=== PATIENT | female | born 1945 | race Two or more races ===

== ENCOUNTER 2018-02-18 09:32 | Outpatient (CLI) | payer OTHER | END 2018-02-18 09:34 | disposition home or self-care (01) | LOC: SONOGRAMA 09:32 | DX: E04.1 Nontoxic single thyroid nodule (principal) ==

== ENCOUNTER 2018-04-15 12:57 | Outpatient (CLI) | payer OTHER | END 2018-04-15 13:25 | disposition home or self-care (01) | LOC: LAB 12:57 | DX: N39.0 Urinary tract infection, site not specified (principal); N20.0 Calculus of kidney; Z51.81 Encounter for therapeutic drug level monitoring; B96.89 Other specified bacterial agents as the cause of diseases classified elsewhere ==

== ENCOUNTER 2018-04-15 14:34 | Outpatient (CLI) | payer OTHER | END 2018-04-15 14:48 | disposition home or self-care (01) | LOC: TOM 14:34 | DX: H53.2 Diplopia (principal) | CPT/HCPCS: 70481; Q9965 ==

== ENCOUNTER 2018-05-05 02:32 | Emergency (ER) | payer OTHER ==
[~2018-05-05] VITALS: Ht 149.9 cm; Wt 70.3 kg
[2018-05-05] MEDS ORDERED: NIFEDIPINE ER30 M1 PO (06:03)
== END 2018-05-05 06:09 | disposition home or self-care (01) ==
LOC: ER 02:32
DX: I16.0 Hypertensive urgency (principal); I10 Essential (primary) hypertension

== ENCOUNTER 2018-08-25 11:42 | Outpatient (CLI) | payer OTHER ==
[~2018-08-25] VITALS: Ht 147.3 cm; Wt 73.5 kg
[~2018-08-25 11:42] MED LIST: NIFEDIPINE ER30 M1 PO
[2018-08-25] MEDS ORDERED: SWIM EAR DRO29.57 ML OT (12:08)
== END 2018-08-25 16:02 | disposition home or self-care (01) ==
LOC: OFIC 805 11:42
DX: H60.8X1 Other otitis externa, right ear (principal)

== ENCOUNTER → 2018-12-22 | Outpatient (CLI) | payer OTHER ==
[~2018-12-22] MED LIST changes: +SWIM EAR DRO29.57 ML OT
== END | disposition home or self-care (01) ==
LOC: SONOGRAMA 12:28
DX: C73 Malignant neoplasm of thyroid gland (principal)

== ENCOUNTER 2019-01-18 14:01 | Outpatient (CLI) | payer OTHER | END 2019-01-18 14:26 | disposition home or self-care (01) | LOC: MAMO-SONO 14:01 | DX: Z12.31 Encounter for screening mammogram for malignant neoplasm of breast (principal); Z87.898 Personal history of other specified conditions; N20.0 Calculus of kidney; F33.0 Major depressive disorder, recurrent, mild; C73 Malignant neoplasm of thyroid gland; Z68.35 Body mass index [BMI] 35.0-35.9, adult; N60.02 Solitary cyst of left breast; N64.4 Mastodynia ==

== ENCOUNTER 2020-12-27 09:15 | Outpatient (CLI) | payer OTHER | END 2020-12-27 09:25 | disposition home or self-care (01) | LOC: RAD 09:15 | DX: N20.0 Calculus of kidney (principal) ==

== ENCOUNTER 2021-02-06 09:30 | Outpatient (CLI) | payer OTHER | END 2021-02-06 09:38 | disposition home or self-care (01) | LOC: SONOGRAMA 09:30 | DX: N20.0 Calculus of kidney (principal) ==

== ENCOUNTER 2021-08-16 13:14 | Emergency (ER) | payer OTHER ==
[~2021-08-16] VITALS: Ht 149.9 cm; Wt 74.8 kg
[2021-08-16] MEDS ORDERED: SYNTHROID137 MCG PO (13:38)
[2021-08-16] MEDS ORDERED: CANDESARTAN CIL32 MG PO (13:38)
[2021-08-16] MEDS ORDERED: BACTRIM DS TAB1 EACH PO (18:10)
[2021-08-16] MEDS ORDERED: DOLOGEN CAPLET1 EACH PO (18:10)
[2021-08-16] MEDS ORDERED: TUSNEL LIQUID178 ML PO (18:10)
[2021-08-16] MEDS ORDERED: PROAIR HFA8.5 GM IH (18:10)
== END 2021-08-16 18:38 | disposition home or self-care (01) ==
LOC: ER 13:14
DX: U07.1 COVID-19 (principal); I10 Essential (primary) hypertension

== ENCOUNTER 2021-08-21 08:15 | Outpatient (CLI) | payer OTHER | END 2021-10-01 08:45 | disposition home or self-care (01) | LOC: ASH CLINIC 08:15 | DX: U07.1 COVID-19 (principal) ==

== ENCOUNTER 2022-04-25 11:57 | Outpatient (CLI) | payer OTHER ==
[~2022-04-25 11:57] MED LIST changes: +BACTRIM DS TAB1 EACH PO; +CANDESARTAN CIL32 MG PO; +DOLOGEN CAPLET1 EACH PO; +PROAIR HFA8.5 GM IH; +SYNTHROID137 MCG PO; +TUSNEL LIQUID178 ML PO
== END 2022-04-25 12:04 | disposition home or self-care (01) ==
LOC: RAD 11:57
PROVIDERS: ATTEND Physical Medicine & Rehabilitation Pain Medicine
DX: S63.501A Unspecified sprain of right wrist, initial encounter (principal); S63.502A Unspecified sprain of left wrist, initial encounter; S80.01XA Contusion of right knee, initial encounter; S80.02XA Contusion of left knee, initial encounter; S32.000A Wedge compression fracture of unspecified lumbar vertebra, initial encounter for closed fracture

== ENCOUNTER 2022-05-21 09:54 | Outpatient (CLI) | payer OTHER | END 2022-05-21 10:15 | disposition home or self-care (01) | LOC: MRI 09:54 | PROVIDERS: ATTEND Physical Medicine & Rehabilitation Pain Medicine | DX: M25.531 Pain in right wrist (principal); M65.9 Synovitis and tenosynovitis, unspecified | CPT/HCPCS: 73221 ==

== ENCOUNTER 2024-12-28 12:49 | Emergency (ER) | payer OTHER ==
[~2024-12-28] VITALS: Ht 147.3 cm; Wt 74.4 kg
[2024-12-28 13:29] VITALS: BP 143/87; O2SAT 96
[2024-12-28] MEDS ORDERED: AMLODIPINE-OLM1 EAC2 (13:31)
[2024-12-28] MEDS ORDERED: GUAIFENESIN/DEXTROMETHORPHAN 100MG/10ML BLIST.PACK PO ONE ×2 (14:30→15:02)
[2024-12-28] MEDS ORDERED: CETIRIZINE HCL 5 MG/5 ML ML PO ONE (14:30)
[2024-12-28] MEDS ORDERED: CETIRIZINE HCL 5MG/5ML BLIST.PACK PO ONE (15:02)
[2024-12-28 15:25] LABS: BASO % 0.6 % (0.1-1.2); EOS # 0.20 (0.04-0.54); EOS % 1.8 % (0.7-7.0); LYMPH # 1.17 (1.18-3.74); LYMPH % 10.5 % (19.3-53.1); MEAN PLATELET VOLUME 10.20 fl (9.4-12.4); MONO # 0.67 (0.24-0.82); MONO % 6.0 % (4.7-12.5); NEUT # 8.99 (1.56-6.13); NEUT % 80.9 % (34.0-71.1); RED CELL DISTRIBUTION WIDTH 13.5 % (11.6-14.4)
[2024-12-28 16:00] LABS: COVID-19 AG NEGATIVE (NEGATIVE)
[2024-12-28] MEDS ORDERED: TUSSIN DM LIQU118 ML PO (17:37)
[2024-12-28] MEDS ORDERED: ZYRTEC10 MG PO (17:37)
[2024-12-28] MEDS ORDERED: AMOX-CLAV 875-1 EAC1 PO (17:37)
[2024-12-28] MEDS ORDERED: LEVOFLOXACIN500 MG PO (17:49)
== END 2024-12-28 18:15 ==
LOC: ER 12:49
PROVIDERS: General Practice
DX: J06.9 Acute upper respiratory infection, unspecified (principal); R09.81 Nasal congestion; J00 Acute nasopharyngitis [common cold]; R05.8 Other specified cough; R50.9 Fever, unspecified; I10 Essential (primary) hypertension; E03.8 Other specified hypothyroidism; Z20.822 Contact with and (suspected) exposure to COVID-19